=== PATIENT | male | born 1975 | race Asian ===

== ENCOUNTER 2020-08-10 16:56 | Emergency (ER) | payer BC ==
[2020-08-10 22:06] LABS: SARS-CoV-2 MS2 Positive; SARS-CoV-2 N Gene Positive; SARS-CoV-2 S Gene Positive; SARS-CoV-2 by NAA DETECTED (NotDetected); SARS-CoV-2 orf1ab Positive
== END 2020-08-10 17:42 | disposition home or self-care (01) ==
LOC: ERS 16:56
DX: U07.1 COVID-19 (principal); Z79.899 Other long term (current) drug therapy; E78.5 Hyperlipidemia, unspecified; E78.00 Pure hypercholesterolemia, unspecified; I10 Essential (primary) hypertension
CPT/HCPCS: 87635; 99283; U0003